=== PATIENT | male | born 1975 | race Caucasian/White ===

== ENCOUNTER 2018-09-17 12:22 | Inpatient (IN) | payer BC ==
[~2018-09-17] VITALS: Ht 175.3 cm; Wt 75.7 kg
[2018-09-17 12:32] VITALS: BP 113/51
--- NOTE | 2018-09-17 12:46 | NUR ---
PATIENT AMBULATED TO BED 1
--- NOTE | 2018-09-17 12:50 | NUR ---
C/O CHEST PAIN X 10 DAYS. PT STATED LEFT CHEST DYSCOMFORT WHEN DEEP INHALE. PT WENT TO FOLLOW UP WITH HIS PCP TODAY & REFERRED FOR EVALUATION. BEEN HOSPITALIZATION FROM AUGUST 27 TO SEPTEMBER 08 FOR ACUTE COLITIS. MED HX: COLITIS WITH DEHYDRATE ADMITTED IN [facility] & DISCHARGE . DENIES N/V/D; SKIN IS PINK/WARM/DRY; AAOX4 WITH EVEN AND STEADY GAIT; HR EVEN AND REGULAR; PT DENIES ANY FEVER, SOB, OR COUGH AT THIS TIME; PATIENT STATES PAIN OF 2/10 AT THIS TIME; VSS; PATIENT POSITIONED FOR COMFORT; HOB ELEVATED; BEDRAILS UP X2; BED DOWN. ER MD MADE AWARE OF PT STATUS.
[2018-09-17 13:43] LABS: BASOPHILS # (AUTO) 0.2 K/uL (0.00-0.22); EOSINOPHILS # (AUTO) 0.4 K/uL (0-0.4); EOSINOPHILS % (AUTO) 5.5 % (0.0-4.0); HEMATOCRIT 32.6 % (36-52); LYMPHOCYTES # (AUTO) 1.6 K/uL (2.0-11.5); LYMPHOCYTES % (AUTO) 22.5 % (20.5-51.1); MEAN CORPUSCULAR HEMOGLOBIN 30 pg (27-31); MEAN CORPUSCULAR HGB CONC 34 g/dL (33-37); MEAN CORPUSCULAR VOLUME 89.8 fL (80-94); MONOCYTES # (AUTO) 0.5 K/uL (0.8-1.0); MONOCYTES % (AUTO) 7.2 % (1.7-9.3); NEUTROPHILS # (AUTO) 4.5 K/uL (1.8-7.7); NEUTROPHILS % (AUTO) 61.8 % (42.2-75.2); PLATELET COUNT (AUTO) 307 K/uL (140-450); RED BLOOD CELL COUNT(AUTO) 3.63 MIL/uL (4.20-6.10); RED CELL DISTRIBUTION WIDTH 14.5 % (11.6-13.7); WHITE BLOOD COUNT (AUTO) 7.3 K/uL (4.8-10.8)
[2018-09-17 14:02] LABS: ANION GAP 12.8 (8-16); CARBON DIOXIDE 26.8 mmol/L (21-32); CREATININE 1.2 mg/dL (0.7-1.3); POTASSIUM 4.6 mmol/L (3.5-5.1)
[2018-09-17 14:16] LABS: TOTAL BILIRUBIN 0.7 mg/dL (0.0-1.0)
--- NOTE | 2018-09-17 14:25 | NUR ---
PT IS OUT FOR CT SCAN.
--- NOTE | 2018-09-17 15:00 | NUR ---
PT HAS COME BACK FROM CT SCAN. PT IS RESTING AT BED WITH EYES OPEN, ON MONITOR; VSS.
[2018-09-17] MEDS ORDERED: ONDANSETRON 4 MG/2 ML VIAL IM/IVP PRN (16:45)
[2018-09-17] MEDS ORDERED: DOCUSATE SODIUM 100 MG GELCAP PO PRN (16:45)
[2018-09-17] MEDS ORDERED: HYDROcodone/APAP 5/325 MG 1 TAB TAB PO PRN (16:45)
[2018-09-17] MEDS ORDERED: ACETAMINOPHEN 325 MG TAB PO PRN (16:45)
[2018-09-17] MEDS ORDERED: LORazepam 2 MG/ML VIAL IM/IVP PRN (16:45)
[2018-09-17] MEDS ORDERED: ZOLPIDEM 5 MG TAB PO PRN (16:45)
[2018-09-17] MEDS ORDERED: MORPHINE SULFATE 2 MG/ML SYR IVP PRN (16:45)
--- NOTE | 2018-09-17 16:55 | NUR ---
JANAY FROM CARDIO AT BEDSIDE DOING ECHO/BUBBLE TEST
--- NOTE | 2018-09-17 17:28 | NUR ---
ECHO COMPLETED. NOTIFIED DR. HORTON AND DR. BOSS ON CRITICAL ECHO FINDINGS.
[2018-09-17 17:42] LABS: FREE T4 (FREE THYROXINE) 1.25 ng/dL (0.76-1.46); PHOSPHORUS 4.2 mg/dL (2.5-4.9); THYROID STIMULATING HORMONE 1.29 uIU/mL (0.34-3.74)
[2018-09-17 17:46] LABS: PROTHROMBIN TIME 10.4 secs (10.8-13.4)
--- NOTE | 2018-09-17 17:50 | NUR ---
Patient will be admitted to care of chest pain. Admited to Telemetry. Will go to room 106B. Belongings list completed. Report to BHUPINDER Nielsen.
[2018-09-17 18:00] VITALS: BP 111/47
--- NOTE | 2018-09-17 18:05 | NUR ---
PATIENT WAS TRANSFERRED FROM ER, AMBULATORY TO BED, STEADY GAIT. REPORT WAS GIVEN AT BEDSIDE. MRSA WAS SWABBED, VS WAS TAKEN, SAND DRIER WAS PLACED. PATIENT WAS AWAKE, ALERT. RESPIRATION EVEN, UNLABOR ON ROOM AIR. SKIN DRY AND WARM. IV PATENT AND INTACT. DENIED CHEST PAIN, SOB AT THIS TIME. PATIENT WAS ORIENTED TO ROOM, STAFF, AND CALL LIGHT. PLAN OF CARE WAS DISCUSSED WITH PATIENT. BED AT LOW POSITION, SIDE RAILS UP. CALL LIGHT WITHIN REACH. FAMILY AT BEDSIDE
[2018-09-17] MEDS: NACL 0.9% 1,000 ML IV SCH (18:14)
--- NOTE | 2018-09-17 19:10 | NUR ---
RECEIVED BEDSIDE REPORT FROM USMAN ROE. PT IS AAO X4. RESPIRATIONS ARE EQUAL AND UNLABORED. DENIES ANY PAIN AT THIS TIME. SKIN INTACT IV ON LAC 18 IVF PER ORDERS. FAMILY AT BEDSIDE. PLAN OF CARE DISCUSSED. SAFETY MEASURES ARE IN PLACE. WILL CONTINUE TO MONITOR.
--- NOTE | 2018-09-17 19:20 | NUR ---
ENDORSEMENT GIVEN TO PLANNING INTERN NURSE. PATIENT IS STABLE AT THIS TIME
[2018-09-17 20:00] VITALS: BP 92/48
--- NOTE | 2018-09-17 20:41 | NUR ---
VITAL SIGNS ARE WITHIN NORMAL LIMITS. B/P ON LOWER NORMAL 92/48 HR 90. SCHEDULED MEDICATION GIVEN. WILL CONTINUE TO MONITOR. SAFETY MEASURES ARE IN PLACE.
[2018-09-17 20:43] LABS: APPEARANCE,URINE CLOUDY (CLEAR); BILIRUBIN,URINE NEGATIVE (NEGATIVE); BLOOD, URINE 2+ (NEGATIVE); COLOR,URINE YELLOW (YELLOW); LEUKOCYTE ESTERASE ,URINE NEGATIVE (NEGATIVE); NITRITE, URINE NEGATIVE (NEGATIVE); UGLUCOSE NEGATIVE (NEGATIVE)
[2018-09-17 20:50] LABS: BARBITURATE, URINE NEG. ng/ml (NEG <=200); BENZODIAZEPINE, URINE NEG. ng/mL (NEG <=200); CANNABINOID, URINE NEG. ng/mL (NEG <=50); COCAINE, URINE NEG. ng/mL (NEG <=300); OPIATE, URINE NEG. ng/mL (NEG <=2000); PHENCYCLIDINE SCREEN,URINE NEG. ng/mL (NEG <=25)
[2018-09-17 20:55] LABS: RBC,URINE 11-20 (MOD) /HPF (0-5); URINE AMORPHOUS URATE 3+ /HPF (None Seen); WBC,URINE 0-5 /HPF (0-5)
--- NOTE | 2018-09-17 23:21 | NUR ---
VITAL SIGNS ARE WITHIN NORMAL LIMITS. PT DENIES PAIN AT THIS TIME. SAFETY MEASURES ARE IN PLACE. WILL CONTINUE TO MONITOR.
[2018-09-18] VITALS: BP 106/48
--- NOTE | 2018-09-18 00:15 | NUR ---
FAXED [facility] FOR AUTHORIZATION OF HEALTH INFORMATION. FAX#[phone]
--- NOTE | 2018-09-18 02:15 | NUR ---
PATIENT IS SLEEPING COMFORTABLY IN BED. RESPIRATIONS ARE EQUAL AND UNLABORED. SAFETY MEASURES ARE IN PLACE. CALL LIGHT WITHIN REACH.
[2018-09-18 04:00] VITALS: BP 101/44
--- NOTE | 2018-09-18 04:30 | NUR ---
VITAL SIGNS ARE WITHIN NORMAL LIMITS. PT DENIES ANY PAIN. ALL NEEDS MET AT THIS TIME. CALL LIGHT WITHIN REACH.
[2018-09-18 06:42] LABS: BASOPHILS # (AUTO) 0.2 K/uL (0.00-0.22); BASOPHILS % (AUTO) 2.3 % (0.0-2.0); EOSINOPHILS # (AUTO) 0.5 K/uL (0-0.4); HEMATOCRIT 33.2 % (36-52); HEMOGLOBIN 11.2 g/dL (12.0-18.0); LYMPHOCYTES # (AUTO) 1.8 K/uL (2.0-11.5); LYMPHOCYTES % (AUTO) 26.2 % (20.5-51.1); MEAN CORPUSCULAR HEMOGLOBIN 30 pg (27-31); MEAN CORPUSCULAR HGB CONC 34 g/dL (33-37); MEAN CORPUSCULAR VOLUME 90.1 fL (80-94); MONOCYTES # (AUTO) 0.5 K/uL (0.8-1.0); MONOCYTES % (AUTO) 7.4 % (1.7-9.3); NEUTROPHILS # (AUTO) 3.9 K/uL (1.8-7.7); NEUTROPHILS % (AUTO) 57.1 % (42.2-75.2); PLATELET COUNT (AUTO) 288 K/uL (140-450); RED BLOOD CELL COUNT(AUTO) 3.68 MIL/uL (4.20-6.10); RED CELL DISTRIBUTION WIDTH 14.4 % (11.6-13.7); WHITE BLOOD COUNT (AUTO) 6.9 K/uL (4.8-10.8)
[2018-09-18 07:05] LABS: ANION GAP 12.5 (8-16); CREATININE 1.2 mg/dL (0.7-1.3); POTASSIUM 4.5 mmol/L (3.5-5.1)
[2018-09-18 07:07] LABS: CHOL/HDL RATIO 3.4 (1-4.5); MAGNESIUM 1.9 mg/dL (1.8-2.4); PHOSPHORUS 4.4 mg/dL (2.5-4.9)
--- NOTE | 2018-09-18 07:17 | NUR ---
RECEIVED BEDSIDE REPORT FROM BHUPINDER MEJÍA. PT STABLE, AWAKE, ALERT AND ORIENTED X4. NO SIGNS OF DISTRESS NOTED. DENIES PAIN OR SOB. NO REDNESS, SWELLING, OR INFLAMMATION NOTED ON IV SITE. CALL PARKS WITHIN REACH. BED IN LOWEST POSITION. SAFETY MEASURES IN PLACE. PLAN OF CARE REVIEWED.
--- NOTE | 2018-09-18 07:18 | NUR ---
GAVE BEDSIDE REPORT TO ADAM HERNANDEZ RN. PT ENDORSED IN STABLE CONDITION.
[2018-09-18 08:00] VITALS: BP 106/50
--- NOTE | 2018-09-18 08:02 | NUR ---
PATIENT HAS BEEN SCREENED AND CATEGORIZED MODERATE NUTRITION RISK. PATIENT WILL BE SEEN WITHIN 3-5 DAYS OF ADMISSION. 09/20/18HALINA HALEY RD
[2018-09-18] MEDS ORDERED: FAMO20TA13 PO (08:58)
[2018-09-18] MEDS ORDERED: FAMOTIDINE 20 MG TAB PO SCH (09:00)
--- NOTE | 2018-09-18 09:00 | NUR ---
ADMINISTERED SCHEDULED MEDICATIONS, PT TOLERATED WELL. NO OTHER NEEDS AT THIS TIME.
[2018-09-18] MEDS: NACL 0.9% 1,000 ML IV SCH (09:07)
[2018-09-18] MEDS ORDERED: VANCOMYCIN PER PHARMACY MC PRN (09:55)
[2018-09-18] MEDS ORDERED: Vancomycin Per Pharmacy MC (10:00)
[2018-09-18] MEDS ORDERED: LACT10CA1 PO (10:00)
[2018-09-18] MEDS ORDERED: PIPE50SO2 IV (10:00)
--- NOTE | 2018-09-18 10:24 | NUR ---
Spoke to Valentine willettfront of house manager in [facility], no tele bed, maybe this afternoon. All papers faxed to her at [phone]. called the insurance [employer] and no answer. Faxed information and order to [facility] at [phone] and Liyah stated that I need to get a cardio thoracic surgeon and gave me the number [phone] Soliz. called the Cardio thoracic office and spoke to Dr. Marques and will to accept. and hospitalist to accept is Dr. Watt. will call House sup at [facility].
[2018-09-18] MEDS ORDERED: LACTOBACILLUS RHAMNOSUS GG 1 EACH CAP PO SCH (10:30)
--- NOTE | 2018-09-18 10:38 | NUR ---
Called Jeanine and stated that I need to call the Hospitalist Dr. Watt. [phone]. Gave the number to Dr. Soliz to call.
[2018-09-18] MEDS ORDERED: VANCOMYCIN HCL 1,250 MG in DEXTROSE 5% 250 ML IV SCH (11:00)
[2018-09-18] MEDS ORDERED: VANCOMYCIN 1GM/DEXT 5% PREMIX 200 ML IV SCH (11:00)
--- NOTE | 2018-09-18 11:18 | NUR ---
ADMINISTERED SCHEDULED MEDICATIONS, PT TOLERATED WELL. NO SIGNS OF DISTRESS NOTED. FAMILY AT THE BEDSIDE.
[2018-09-18 12:00] VITALS: BP 108/52
--- NOTE | 2018-09-18 12:10 | NUR ---
VITAL SIGNS TAKEN, PT STABLE.
--- NOTE | 2018-09-18 12:18 | NUR ---
Denise from [facility] Ext [phone] stated that Denise will contact [facility] to see if there is bed available to take the patient. Denise said will contact also [facility]. Will call back.
[2018-09-18] MEDS ORDERED: PIPER/TAZO 3.375GM/D5W PREMIX 50 ML IV SCH (13:00)
--- NOTE | 2018-09-18 13:23 | NUR ---
Kiesha from [facility] called and information given and will work on it to give us a bed. will call back.
--- NOTE | 2018-09-18 13:51 | NUR ---
ADMINISTERED SCHEDULED MEDICATION, PT TOLERATED WELL. NO OTHER NEEDS AT THIS TIME.
--- NOTE | 2018-09-18 14:22 | NUR ---
CALLED [facility] SPOKE WITH CHAUNCEY BED COORDINATOR FOR TRANSFERRING THE PT PER CHAUNCEY SHE HAS AN ACCEPTING DR AND NEEDS AUTHORIZATION , CALLED FINES[facility] [phone] ext [phone] ,SHE WILL CHECK WITH EMY DIETRICH AND WILL CALL BACK
--- NOTE | 2018-09-18 14:48 | NUR ---
INDIO SPINNING BATH PATROLLER FROM [facility] CALLED AND SAID THEY ARE DECLINING THE PATIENT.
--- NOTE | 2018-09-18 15:51 | NUR ---
I RECEIVED A CALL FROM [facility] [phone] [facility] , PATIENT CAN GO TO [facility] UNDER THE CARE OF DR FERNANDEZ. SHE IS WAITING FOR THE BED ONCE SHE GETS THE BED SHE WILL CALL THE FLOOR . I PROVIDED THE FLOOR NUMBER [phone] AND NOTIFIED CHARGE NURSE
--- NOTE | 2018-09-18 15:55 | NUR ---
VITAL SIGNS TAKEN, PT STABLE. NO OTHER NEEDS AT THIS TIME. AT THE BEDSIDE. Addendum: 09/18/18 at 1839 by Dillan Burch RN PT DENIES ANY CHEST PAIN, SOB, OR DISCOMFORT.
[2018-09-18 16:00] VITALS: BP 98/44
--- NOTE | 2018-09-18 16:19 | NUR ---
[facility] BREWER CALLED AND PT CAN GO TO ROOM CCU BED 3 THE NUMBER TO GIVE REPORT [phone] , [facility] WILL JOURNEYMAN WELDER PT WITH IN ONE HR.
--- NOTE | 2018-09-18 17:36 | NUR ---
GAVE REPORT TO TORI FROM [facility].
--- NOTE | 2018-09-18 17:50 | NUR ---
D/C INSTRUCTIONS AND PAPERWORK GIVEN. PT VERBALIZED UNDERSTANDING. SUSAN AT THE BEDSIDE. QUESTIONS AND CONCERNS WERE ADDRESSED. IV ON LEFT AC 18G KEPT IN PLACE DUE TO PT WILL RECEIVE IV ANTIBIOTICS AT [facility]. IV SITE IS ASYMPTOMATIC, INTACT, AND PATENT. SKIN INTACT, PNEUMONIA VACCINE AND FLU VACCINE N/A. PT STABLE, AAOX4, AMBULATES WITH STEADY GAIT, COMMUNICATES WITH STAFF APPROPRIATELY. PT TOOK ALL BELONGINGS WITH HIM. PT PICKED UP BY [facility] TO BE TAKEN TO [facility].
[2018-09-19] MEDS ORDERED: LACTOBACILLUS RHAMNOSUS GG 1 EACH CAP PO SCH (09:00)
[2018-09-20 06:10] LABS: FOLIC ACID 10.2 ng/mL (>3.0)
== END 2018-09-18 17:50 | disposition short-term general hospital (02) | DRG 290 ==
LOC: MED 12:22 → MTU 16:44
PROVIDERS: ADMIT General Practice; ATTEND General Practice
DX: I33.0 Acute and subacute infective endocarditis (principal); M94.0 Chondrocostal junction syndrome [Tietze]; D64.9 Anemia, unspecified; E66.3 Overweight; Z68.24 Body mass index [BMI] 24.0-24.9, adult; Z71.3 Dietary counseling and surveillance; K21.9 Gastro-esophageal reflux disease without esophagitis
CPT/HCPCS: 36415; 71045; 71275; 80048; 80053; 80305; 81001; 82150; 82607; 82728; 82746; 83036; 83540; 83690; 83735; 83880; 84100; 84439; 84443; 84479; 84484; 85025; 85045; 85610; 85730; 86592; 87040; 87081; 93005; 99285; J1644; J2543; J3370; J7030; J7060; Q9967

== ENCOUNTER 2020-11-11 08:41 | Emergency (ER) | payer BC, OTHER ==
[~2020-11-11] VITALS: Ht 175.3 cm; Wt 84.8 kg
[~2020-11-11 08:41] MED LIST: FAMO20TA13 PO; LACT10CA1 PO; PIPE50SO2 IV; Vancomycin Per Pharmacy MC
[2020-11-11 08:53] VITALS: BP 138/81
--- NOTE | 2020-11-11 09:01 | NUR ---
Pt ambulated to bed 12.
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
[2020-11-11] MEDS ORDERED: LIDOCAINE MPF 1% 10 MG/ML VIAL INJ ONE (09:25)
[2020-11-11] MEDS ORDERED: BACITRACIN OINT 500 UNITS/GM PKT TP ONE (10:23)
[2020-11-11 10:53] VITALS: BP 119/69
--- NOTE | 2020-11-11 10:53 | NUR ---
Patient discharged with v/s stable. Written and verbal after care instructions given and explained. Patient verbalized understanding. Ambulatory with steady gait. ID band removed. All questions addressed prior to discharge. Advised to follow up with PMD.
== END 2020-11-11 10:53 | disposition home or self-care (01) ==
LOC: MED 08:41
DX: S61.412A Laceration without foreign body of left hand, initial encounter (principal); Z79.01 Long term (current) use of anticoagulants; Z79.899 Other long term (current) drug therapy; W45.8XXA Other foreign body or object entering through skin, initial encounter; Y93.89 Activity, other specified; Y92.89 Other specified places as the place of occurrence of the external cause; Y99.8 Other external cause status
CPT/HCPCS: 12001; 90471; 90715; 99283; J2001